=== PATIENT | female | born 1965 | race Caucasian/White ===

== ENCOUNTER 2016-10-19 10:32 | Day surgery (SDC) | payer BC ==
[~2016-10-19 10:32] MED LIST: PROAIR HFA8.5 GM INH
== END 2016-10-19 19:57 ==
LOC: SRG 10:32 → SHSB 10:33 → ORE 13:10 → PACU 15:23 → SHSB 16:45
PROC: 09SM0ZZ Reposition Nasal Septum, Open Approach (ICD-10-PCS; principal; 2016-10-19)
PROC: 8E09XBZ Computer Assisted Procedure of Head and Neck Region (ICD-10-PCS; 2016-10-19)
PROC: 09TV4ZZ Resection of Left Ethmoid Sinus, Percutaneous Endoscopic Approach (ICD-10-PCS; 2016-10-19)
PROC: 09TW4ZZ Resection of Right Sphenoid Sinus, Percutaneous Endoscopic Approach (ICD-10-PCS; 2016-10-19)
PROC: 09TX4ZZ Resection of Left Sphenoid Sinus, Percutaneous Endoscopic Approach (ICD-10-PCS; 2016-10-19)
PROC: 09TQ4ZZ Resection of Right Maxillary Sinus, Percutaneous Endoscopic Approach (ICD-10-PCS; 2016-10-19)
PROC: 09TR4ZZ Resection of Left Maxillary Sinus, Percutaneous Endoscopic Approach (ICD-10-PCS; 2016-10-19)
PROC: 09TU4ZZ Resection of Right Ethmoid Sinus, Percutaneous Endoscopic Approach (ICD-10-PCS; 2016-10-19)
PROC: 09T Ear, Nose, Sinus, Resection (ICD-10-PCS; 2016-10-19)
PROC: 09T Ear, Nose, Sinus, Resection (ICD-10-PCS; 2016-10-19)
DX: J32.4 Chronic pansinusitis (principal); J34.2 Deviated nasal septum; Z98.890 Other specified postprocedural states
CPT/HCPCS: C1726; C2625; J2405; J3010